=== PATIENT | female | born 1990 | race Caucasian/White ===

== ENCOUNTER 2017-01-12 19:20 | Emergency (ER) | payer MEDICAID ==
[~2017-01-12] VITALS: Ht 154.9 cm; Wt 102.5 kg
[~2017-01-12 19:20] MED LIST: AFRI0.059 EACH NARE; FLINT2 CHEW; TYLE325T PO; ZYRT10CA PO
[2017-01-12 19:36] VITALS: BP 112/66; PULSE 98; RESP 18; TEMP 98.2; O2SAT 100
[2017-01-12 19:58] LABS: BLOOD, URINE TRACE (NEG); GLUCOSE,URINE NEG (NEG); KETONE, URINE NEG (NEG); NITRITE,URINE NEG (NEG)
[2017-01-12 20:05] LABS: RBC, URINE 0-3 /hpf (0-3); URINE COLOR YELLOW (YELLW/STRAW); WBC, URINE 0-2 /hpf (0-5)
[2017-01-12 20:06] LABS: BACTERIA, URINE MOD /hpf; COMMENT (UR) CULTURE INDICATED; CULTURE IF INDICATED CULTURE INDICATED
--- NOTE | 2017-01-12 21:18 | PD ---
HPI Chief Complaint: Related Problem Time Seen by Provider: 21:07 Travel History International Travel<30 days: No Contact w/Intl Traveler<30days: No Traveled to known affect area: No History of Present Illness HPI This 26-year-old female says she had abdominal pain earlier today. After eating lunch she had pain in the right upper quadrant which radiated to the back. The pain was quite bad and lasted for about 3 hours. She has not had pain like this before. She is 16 weeks . She has not had any vaginal bleeding. PFSH Past Medical History Diabetes: Yes (GESTATIONAL) ?: LMP: OCT : 2 Para: 1 Past Surgical History Section: Yes Tonsillectomy: Yes Social History Alcohol Use: Yes (occ, but not now) Tobacco Use: No Allergies-Medications (Allergen,Severity, Reaction): Coded Allergies: Ceclor (Verified Allergy, Severe, Hives, 01/12/17) Sulfa (Verified Allergy, Severe, 01/12/17) Amoxicillin (Verified Allergy, Intermediate, 01/12/17) Reported Meds & Prescriptions Reported Meds & Active Scripts Active Macrobid (Nitrofurantoin Monoh/Nitrofur Macro) 100 Mg Cap 100 Mg PO BID 7 Days Reported Pre- Formula ( Multivit-Min W/Fe-FA) 1 Tab Tab Review of Systems General / Constitutional: No: Fever, Chills Eyes: No: Diploplia, Blurred Vision HENT: No: Headaches, Vertigo Cardiovascular: No: Chest Pain or Discomfort Respiratory: No: Shortness of Breath Gastrointestinal: Positive: Abdominal Pain Genitourinary: No: Frequency, Dysuria Physical Exam Narrative GENERAL well-developed female SKIN: Warm and dry. HEAD: Atraumatic. Normocephalic. EYES: Pupils equal and round. No scleral icterus. No injection or drainage. ENT: No nasal bleeding or discharge. Mucous membranes pink and moist. NECK: Trachea midline. No JVD. CARDIOVASCULAR: Regular rate and rhythm. No murmur appreciated. RESPIRATORY: No accessory muscle use. Clear to auscultation. Breath sounds equal bilaterally. GASTROINTESTINAL: Abdomen soft, there is some right upper quadrant tenderness without guarding or rigidity, nondistended. Hepatic and splenic margins not palpable. MUSCULOSKELETAL: No obvious deformities. No clubbing. No cyanosis. No edema. NEUROLOGICAL: Awake and alert. No obvious cranial nerve deficits. Motor grossly within normal limits. Normal speech. PSYCHIATRIC: Appropriate mood and affect; insight and judgment normal. Data Data Last Documented VS Vital Signs Date Time Temp Pulse Resp B/P Pulse Ox O2 Delivery O2 Flow Rate FiO2 01/12/17 19:36 98.2 98 18 112/66 100 Orders Urinalysis - C+S If Indicated (01/12/17 19:42) Urine Culture (01/12/17 19:40) Complete Blood Count With Diff (01/12/17 21:15) Comprehensive Metabolic Panel (01/12/17 21:15) Lipase (01/12/17 21:15) Us Abdomen Gallbladder (01/12/17 21:16) Labs Laboratory Tests Test 01/12/17 01/12/17 19:40 22:10 Urine Color YELLOW Urine Turbidity HAZY Urine pH 6.0 Urine Specific [place] 1.031 Urine Protein TRACE mg/dL Urine Glucose (UA) NEG mg/dL Urine Ketones NEG mg/dL Urine Occult Blood TRACE Urine Nitrite NEG Urine Bilirubin NEG Urine Leukocyte Esterase SMALL Urine RBC 0-3 /hpf Urine WBC 0-2 /hpf Urine Squamous Epithelial 6-8 /hpf Cells Urine Bacteria MOD /hpf Microscopic Urinalysis Comment CULTURE INDICATED White Blood Count 9.0 TH/MM3 Red Blood Count 4.00 MIL/MM3 Hemoglobin 11.0 GM/DL Hematocrit 32.3 % Mean Corpuscular Volume 80.9 FL Mean Corpuscular Hemoglobin 27.4 PG Mean Corpuscular Hemoglobin 33.9 % Concent Red Cell Distribution Width 13.9 % Platelet Count 226 TH/MM3 Mean Platelet Volume 8.5 FL Neutrophils (%) (Auto) 70.4 % Lymphocytes (%) (Auto) 23.4 % Monocytes (%) (Auto) 4.2 % Eosinophils (%) (Auto) 1.7 % Basophils (%) (Auto) 0.3 % Neutrophils # (Auto) 6.3 TH/MM3 Lymphocytes # (Auto) 2.1 TH/MM3 Monocytes # (Auto) 0.4 TH/MM3 Eosinophils # (Auto) 0.2 TH/MM3 Basophils # (Auto) 0.0 TH/MM3 CBC Comment DIFF FINAL Differential Comment Sodium Level 138 MEQ/L Potassium Level 3.6 MEQ/L Chloride Level 106 MEQ/L Carbon Dioxide Level 21.4 MEQ/L Anion Gap 11 MEQ/L Blood Urea Nitrogen 13 MG/DL Creatinine 0.55 MG/DL Estimat Glomerular Filtration 136 ML/MIN Rate Random Glucose 100 MG/DL Calcium Level 8.5 MG/DL Total Bilirubin 0.3 MG/DL Aspartate Amino Transf 5 U/L (AST/SGOT) Alanine Aminotransferase 21 U/L (ALT/SGPT) Alkaline Phosphatase 50 U/L Total Protein 6.0 GM/DL Albumin 2.7 GM/DL Lipase 117 U/L [facility] Medical Decision Making Medical Screen Exam Complete: Yes Emergency Medical Condition: Yes Medical Record Reviewed: Yes Differential Diagnosis Differential includes , cholelithiasis, cholecystitis Narrative Course Function tests are normal. An ultrasound of the gallbladder was obtained and is negative. Urinalysis does show equivocal findings for UTI. There is small leukocyte esterase with bacteria Diagnosis Primary Impression: Urinary tract infection Scripts Nitrofurantoin Monohydrate Macrocrystals (Macrobid)100 Mg [id number] Mg PO BID 7 Days Ref 0 Prov:Dominick Alcocer MD 01/12/17 Disposition: 01 DISCHARGE HOME Condition: Stable Dominick Alcocer MD Jan 12, 2017 21:17
[2017-01-12] MEDS ORDERED: [UNRECOGNIZED DRUG - CODE] (21:21)
[2017-01-12 22:29] LABS: AUTOMATED NEUTROPHIL # 6.3 TH/MM3 (1.8-7.7); BASOPHIL % 0.3 % (0.0-2.0); EOSINOPHIL # 0.2 TH/MM3 (0-0.4); EOSINOPHIL % 1.7 % (0.0-4.0); HEMATOCRIT 32.3 % (35.0-46.0); HEMO FLAGS DIFF FINAL; LYMPH % 23.4 % (9.0-44.0); LYMPHOCYTE # 2.1 TH/MM3 (1.0-4.8); MEAN CELL VOLUME 80.9 FL (80.0-100.0); MEAN CORPUSCULAR HEMOGLOBIN 27.4 PG (27.0-34.0); MEAN CORPUSCULAR HGB CONC 33.9 % (32.0-36.0); MONO % 4.2 % (0.0-8.0); NEUT % 70.4 % (16.0-70.0); PLATELET COUNT 226 TH/MM3 (150-450); RED CELL DISTRIBUTION WIDTH 13.9 % (11.6-17.2)
[2017-01-12 22:38] LABS: CHLORIDE 106 MEQ/L (98-107); POTASSIUM 3.6 MEQ/L (3.5-5.1); SODIUM (NA) 138 MEQ/L (136-145)
[2017-01-12 22:41] LABS: ANION GAP 11 MEQ/L (5-15); BICARBONATE 21.4 MEQ/L (21.0-32.0)
[2017-01-12 22:42] LABS: BLOOD UREA NITROGEN 13 MG/DL (7-18)
[2017-01-12 22:44] LABS: ALT (GPT) 21 U/L (10-53); AST (GOT) 5 U/L (15-37)
[2017-01-12 22:45] LABS: GLOMERULAR FILTRATION RATE 136 ML/MIN (>89)
[2017-01-12 22:46] LABS: TOTAL BILIRUBIN ADULT 0.3 MG/DL (0.2-1.0)
[2017-01-12 22:47] LABS: ALKALINE PHOSPHATASE 50 U/L (45-117)
--- NOTE | 2017-01-12 22:52 | RADHPO ---
EXAM DATE/TIME: 01/12/2017 21:58 [place] COMPARISON: No previous studies available for comparison. INDICATIONS : Right upper quadrant pain. MEDICAL HISTORY : . Hypertension. Gestational diabetes. Currently 16 weeks . SURGICAL HISTORY : section. Tonsillectomy. ENCOUNTER: Initial ACUITY: 1 day PAIN SCORE: 3/10 LOCATION: Right upper quadrant MEASUREMENTS: LIVER: 15.8 cm length COMMON DUCT: 4 mm RIGHT KIDNEY: 9.6 x 4.9 x 4.8 cm FINDINGS: LIVER: Normal echotexture without focal lesion or ductal dilatation. COMMON DUCT: No intraluminal mass or stone visualized. GALLBLADDER: Contains no stones, demonstrates no wall thickening or pericholecystic fluid. PANCREAS: The visualized portions are within normal limits. RIGHT KIDNEY: No evidence of hydronephrosis, stone, or mass. CONCLUSION: Normal examination. Kumar Quintana MD on January 12, 2017 at 22:50 Board Certified Radiologist. This report was verified electronically.
[2017-01-12] MEDS ORDERED: MACR100C2 PO (23:04)
[2017-01-12 23:41] VITALS: BP 126/62
== END 2017-01-12 23:42 | disposition home or self-care (01) ==
LOC: PHED 19:20
DX: O23.42 Unspecified infection of urinary tract in pregnancy, second trimester (principal); B96.89 Other specified bacterial agents as the cause of diseases classified elsewhere; Z3A.16 16 weeks gestation of pregnancy
CPT/HCPCS: 76705; 80053; 81001; 83690; 85025; 87086

== ENCOUNTER 2017-06-29 23:49 | Emergency (ER) | payer MEDICAID ==
[~2017-06-29] VITALS: Ht 167.6 cm; Wt 77.0 kg
[~2017-06-29 23:49] MED LIST changes: -AFRI0.059 EACH NARE; -FLINT2 CHEW; +MACR100C2 PO; -TYLE325T PO; -ZYRT10CA PO; +[UNRECOGNIZED DRUG - CODE]
[2017-06-29 23:57] VITALS: BP 142/92; PULSE 90; RESP 16; TEMP 98.5; O2SAT 100
[2017-06-30] MEDS ORDERED: IBUP800T23 PO (00:56)
[2017-06-30] MEDS ORDERED: FERR325C PO (00:56)
--- NOTE | 2017-06-30 01:44 | PD ---
HPI Chief Complaint: Abdominal Pain Time Seen by Provider: 00:43 Travel History International Travel<30 days: No Contact w/Intl Traveler<30days: No Traveled to known affect area: No History of Present Illness HPI The patient is a 26 year old female who presents to the [facility] emergency department with a history of abdominal cramping that she reports began today. She reports that she is postop status post delivery on June 23, 2017. She has not had a bowel movement since delivering. She is breast-feeding. She reports that she is passing gas. She reports that her C- section wound is healing well. She reports that she had a for repeat purposes. The patient reports that it was done in [place] as she was a high risk due to gestational diabetes and hydrocephalus and the baby noted on ultrasound. The patient denies having any nausea or vomiting. On review of systems otherwise, the patient denies any recent fevers, cough, congestion, neck pain, chest pain, shortness of breath,or neurologic symptoms. [facility] Past Medical History Narrative Medical The patient's past medical history is significant for gestational diabetes, preeclampsia with her first . Diabetes: Yes (GESTATIONAL) Diminished Hearing: No Hypertension: Yes Medical other: Yes (PREECLAMPSIA WITH 1ST ) Influenza Vaccination: Yes ?: Not : 2 Para: 2 Past Surgical History Narrative Surgical The patient's past surgical history is significant for 2 C-sections, tonsillectomy. Section: Yes Tonsillectomy: Yes Social History Alcohol Use: No Tobacco Use: No Substance Use: No Allergies-Medications (Allergen,Severity, Reaction): Coded Allergies: Ceclor (Verified Allergy, Severe, Hives, 01/12/17) Sulfa (Verified Allergy, Severe, 01/12/17) Amoxicillin (Verified Allergy, Intermediate, 01/12/17) Reported Meds & Prescriptions Reported Meds & Active Scripts Active Reported Ibuprofen 800 Mg Tab 800 Mg PO Q6HR PRN Iron (Ferrous Sulfate) 325 Mg Cap Unknown Dose PO BIDPC Review of Systems Except as stated in HPI: all other systems reviewed are Neg General / Constitutional: No: Fever Eyes: No: Visual changes HENT: No: Headaches Cardiovascular: No: Chest Pain or Discomfort Respiratory: No: Shortness of Breath Gastrointestinal: Positive: Abdominal Pain (abdominal cramping), Constipation, Changes in Bowel Habits, No: Nausea, Vomiting, Diarrhea, Indigestion Genitourinary: No: Dysuria Musculoskeletal: No: Pain Skin: No Rash Neurologic: No: Weakness Psychiatric: No: Depression Endocrine: No: Polydipsia Hematologic/Lymphatic: No: Easy Bruising Physical Exam Narrative General: The patient is a well-developed well-nourished female in no acute distress. Head and Neck exam: Head is normocephalic atraumatic. Eyes: EOMI, pupils are equal round and reactive to light. Nose: Midline septum with pink mucous membranes Mouth: Dentition unremarkable. Moist mucus membranes. Posterior oropharynx is not erythematous. No tonsillar hypertrophy. Uvula midline. Airway patent. Neck: No palpable lymphadenopathy. No nuchal rigidity. No thyromegaly. Cardiovascular: Regular rate and rhythm without murmurs, gallops, or rubs. No pulse deficit to the extremities and simultaneous auscultation and palpation of her radial artery. Lungs: Clear to auscultation bilaterally. No wheezes, rhonchi, or rales. Abdomen: Soft, without tenderness to palpation in all 4 quadrants of the abdomen. No guarding, rebound, or rigidity. No tenderness on palpation of McBurney's point. Negative Reardon's sign. Normal bowel sounds are audible. Along the lower aspect of the abdomen and the bikini line the patient is noted to have Steri-Strips in place over her wound. The patient is healing well. There is no surrounding erythema or drainage. No discharge on palpation. No edema. No calf tenderness on palpation. Extremities: No clubbing, cyanosis, or edema. 2+ pulses in all 4 extremities. Back: No costovertebral angle tenderness to palpation. Neurologic Exam: Grossly nonfocal. Skin Exam: No rash noted. Intact skin that is warm and dry. RECTAL EXAM: No masses or tenderness, stool is brown. No fecal impaction is noted. Data Data Last Documented VS Vital Signs Date Time Temp Pulse Resp B/P Pulse Ox O2 Delivery O2 Flow Rate FiO2 06/29/17 23:57 98.5 90 16 142/92 100 Room Air Orders Glycerin Adult Supp (Glycerin Adult Supp (06/30/17 01:45) MDM Medical Decision Making Medical Screen Exam Complete: Yes Emergency Medical Condition: Yes Differential Diagnosis Constipation, versus fecal impaction Narrative Course During the course of the patients emergency department visit, the patients history, examination, and differential diagnosis were reviewed with the patient. The patient had a rectal examination done to identify any signs of a fecal impaction. No fecal impaction was identified. The patient did have a small amount of hard stool noted. The patient was provided a glycerin suppository rectally. The patient is resting comfortably and feels better, is alert and in no distress. The patients results and examination findings were discussed with the patient. The repeat examination is unremarkable and benign. The history, exam, diagnostic testing, and current condition do not suggest any significant pathology to warrant further testing, continued ED treatment, admission, or surgical evaluation at this point. The vital signs have been stable. The patient does not have uncontrollable pain, intractable vomiting, or other significant symptoms. The patient's condition is stable and appropriate for discharge. The patient will pursue further outpatient evaluation with a primary care physician or other designated or consulting physician as indicated in the discharge instructions. The patient expressed understanding and was agreeable with this plan. Diagnosis Primary Impression: Constipation Qualified Code: K59.00 - Constipation, unspecified constipation type Referrals: [facility] Additional Instructions: The patient is instructed to walk 30 minutes daily to help with constipation. The patient is instructed to drink 8 glasses of water per day. She is instructed to increase the fiber in her diet by eating Greenleafy vegetables and beans. The patient is instructed to administer a laxative if she continues to have constipation. Disposition: 01 DISCHARGE HOME Condition: Stable Ermelinda Hong MD Jun 30, 2017 01:44
[2017-06-30] MEDS ORDERED: GLYCERIN ADULT 2 GM SUPP RECTAL ONE (01:45)
== END 2017-06-30 03:30 | disposition home or self-care (01) ==
LOC: NEPC 23:49
DX: O90.89 Other complications of the puerperium, not elsewhere classified (principal); K59.00 Constipation, unspecified; O16.5 Unspecified maternal hypertension, complicating the puerperium; Z98.890 Other specified postprocedural states
CPT/HCPCS: 99284

== ENCOUNTER 2018-05-04 12:22 | Emergency (ER) | payer OTHER, MEDICAID ==
[~2018-05-04] VITALS: Ht 152.4 cm; Wt 100.0 kg
[~2018-05-04 12:22] MED LIST changes: +FERR325C PO; +IBUP1TAB7 PO; -MACR100C2 PO; -[UNRECOGNIZED DRUG - CODE]
[2018-05-04 12:40] VITALS: BP 153/67; PULSE 100; RESP 16; TEMP 98.8; O2SAT 99
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
[2018-05-04] MEDS ORDERED: CYCLOBENZAPRINE HCL 10 MG TAB PO ONE (15:30)
[2018-05-04] MEDS ORDERED: IBUPROFEN 800 MG TAB PO ONE (15:30)
[2018-05-04] MEDS ORDERED: ROBA750T PO (15:31)
[2018-05-04] MEDS ORDERED: IBUP-232 PO (15:31)
== END 2018-05-04 15:44 | disposition home or self-care (01) ==
LOC: NEPK 12:22
DX: S20.219A Contusion of unspecified front wall of thorax, initial encounter (principal); S80.212A Abrasion, left knee, initial encounter; S69.91XA Unspecified injury of right wrist, hand and finger(s), initial encounter; I10 Essential (primary) hypertension; V49.49XA Driver injured in collision with other motor vehicles in traffic accident, initial encounter; Y92.410 Unspecified street and highway as the place of occurrence of the external cause; Z88.2 Allergy status to sulfonamides; Z88.0 Allergy status to penicillin
CPT/HCPCS: 71045; 73140; 73564; 99284